=== PATIENT | male | born 1985 | race Hispanic/Latino ===

== ENCOUNTER 2018-01-13 21:19 | Emergency (ER) | payer BC ==
[2018-01-13 22:08] VITALS: O2SAT 99
--- NOTE | 2018-01-14 00:12 | ED PDOC ---
HPI: General Adult Time Seen by Provider: 01/13/18 22:12 Chief Complaint (Nursing): Trauma Past Medical History Vital Signs: Last Vital Signs Temp 98.2 F 01/13/18 22:01 Pulse 88 01/13/18 22:01 Resp 16 01/13/18 22:01 BP 137/80 01/13/18 22:01 Pulse Ox 99 01/13/18 22:01 - Home Medications Home Medications: Ambulatory Orders Medication Instructions Recorded Amoxicillin/Clavulanate [Augmentin 1 tab PO BID #20 tab 01/14/18 875 MG-125 MG] - Allergies Allergies/Adverse Reactions: Allergies Allergy/AdvReac Type Severity Reaction Status Date / Time No Known Allergies Allergy Verified 01/13/18 22:01 - ECG O2 Sat by Pulse Oximetry: 99 Disposition - Clinical Impression Clinical Impression: Head injury, Sinusitis - Disposition Disposition: Routine/Home Disposition Time: 00:12 Condition: STABLE Prescriptions: Amoxicillin/Clavulanate [Augmentin 875 MG-125 MG] 1 tab PO BID #20 tab Instructions: Sinusitis in Adults Forms: [facility] (Uzbek)
[2018-01-14 00:14] VITALS: BP 126/74; PULSE 79; RESP 15; TEMP 98.1
--- NOTE | 2018-01-14 05:51 | CT ---
Date of service: 01/13/2018 PROCEDURE: CT HEAD WITHOUT CONTRAST. HISTORY: head injury COMPARISON: None available. TECHNIQUE: Axial computed tomography images were obtained through the head/brain without intravenous contrast. Radiation dose: Total exam DLP = 774.09 mGy-cm. This CT exam was performed using one or more of the following dose reduction techniques: Automated exposure control, adjustment of the mA and/or kV according to patient size, and/or use of iterative reconstruction technique. FINDINGS: HEMORRHAGE: No intracranial hemorrhage. BRAIN: No mass effect or edema. No atrophy or chronic microvascular ischemic changes. VENTRICLES: Unremarkable. No hydrocephalus. CALVARIUM: Unremarkable. PARANASAL SINUSES: Unremarkable as visualized. No significant inflammatory changes. MASTOID AIR CELLS: Unremarkable as visualized. No inflammatory changes. OTHER FINDINGS: None. IMPRESSION: Normal CT of the Head.
== END 2018-01-14 00:14 | disposition home or self-care (01) ==
LOC: H.ER 21:19
DX: S09.90XA Unspecified injury of head, initial encounter (principal); J32.9 Chronic sinusitis, unspecified